=== PATIENT | male | born 1985 | race Caucasian/White ===

== ENCOUNTER 2019-03-23 09:15 | Emergency (ER) | payer SELFPAY ==
[2019-03-23] MEDS ORDERED: Sodium Chloride 0.9% 1000 ML 1,000 ML IV STA ×2 (09:23→10:49)
[2019-03-23] MEDS ORDERED: MORPHINE SULFATE 4 MG INJ IV ONE (09:23)
[2019-03-23] MEDS ORDERED: Zofran 4 MG/2 ML VIAL IV ONE (09:23)
[2019-03-23] MEDS ORDERED: MORPHINE SULFATE 4 MG INJ ONE (09:36)
[2019-03-23 09:44] LABS: BASOPHIL % 0.1 % (0.0-0.4); Basophil (Absolute #) 0.01 (0-0.4); Eosinophil % 1.6 % (0.00-5.0); Eosinophil (Absolute #) 0.12 (0-0.5); Granulocyte Absolute (ANC) 4.73 (1.4-6.9); Granulocytes % 61.9 % (36.0-66.0); Hematocrit 46.7 % (42-50); Hemoglobin 15.8 gm/dl (12.5-18.0); Lymphocyte (Absolute #) 2.03 (1.0-4.6); Lymphocytes % 26.6 % (24.0-44.0); Mean Cell Volume 92.5 fl (78-100); Mean Corpuscular Hemoglobin 31.3 pg (26-32); Mean Corpuscular Hgb Concent. 33.8 g/dl (32-36); Mean Platelet Volume 11.2 fl (6-9.5); Monocyte (Absolute #) 0.75 (0.0-1.3); Monocytes % 9.8 % (0.0-12.0); Platelet Count 134 K/mm3 (150-450); Red Blood Count 5.05 M/mm3 (4.1-5.6); Red Cell Distribution Width 13.8 % (11.5-14.0); White Blood Count 7.6 K/mm3 (4.0-10.5)
[2019-03-23] MEDS ORDERED: Zofran 4 MG/2 ML VIAL ONE (09:47)
[2019-03-23] MEDS ORDERED: Sodium Chloride 0.9% 1000 ML 1,000 ML ONE ×2 (09:47→10:50)
--- NOTE | 2019-03-23 09:47 | ERPHSYRPT ---
- History of Present Illness Time Seen by Provider: 03/23/19 09:45 Historian: patient, family Exam Limitations: no limitations Patient Subjective Stated Complaint: Right flank pain that radiates to the front , doubled over in pain Triage Nursing Assessment: Pt woke in the middle of the night with right sided flank pain that radiates to the front, vitals wnl, afebrile, rates pain 7/10 Physician History: 33-year-old male patient without any significant past medical history came to the emergency room with sudden onset of right costovertebral angle area pain radiating to the front into the groin and into the testicle on the right side. Patient's elevated cup with this type of pain at 6:00 in the morning and came to the emergency room around 9:30 AM. Patient never had this type of problem before and otherwise patient is healthy except for history of smoking about one pack per day for 15 years. Patient denies any history of high blood pressure, heart disease, alcohol use. Timing/Duration: today Activities at Onset: rest Quality: aching, fullness Abdominal Pain Onset Location: flank, other (right CVA ) Allergies/Adverse Reactions: No Known Drug Allergies Allergy (Verified 03/23/19 09:41) - Review of Systems Constitutional: No Fever, No Chills Eyes: No Symptoms Ears, Nose, & Throat: No Symptoms Respiratory: No Cough, No Dyspnea Cardiac: No Chest Pain, No Edema, No Syncope Abdominal/Gastrointestinal: Abdominal Pain, No Nausea, No Vomiting, No Diarrhea Genitourinary Symptoms: Dysuria, Frequency, Hesitancy, Urgency, Urinary Retention, Flank Pain, Testicle Pain, No Incontinence, No Penile Discharge Musculoskeletal: No Back Pain, No Neck Pain Skin: No Rash Neurological: No Dizziness, No Focal Weakness, No Sensory Changes Psychological: No Symptoms Endocrine: No Symptoms All Other Systems: Reviewed and Negative - Past Medical History Pertinent Past Medical History: No - Past Surgical History Past Surgical History: Yes Musculoskeletal: Other - Social History Smoking Status: Current every day smoker How long have you smoked: 17 Exposure to second hand smoke: Yes Drug Use: none Patient Lives Alone: No - Nursing Vital Signs Nursing Vital Signs: Initial Vital Signs Temperature 97.8 F 03/23/19 09:20 Pulse Rate 68 03/23/19 09:20 Blood Pressure 109/73 03/23/19 09:20 O2 Sat by Pulse Oximetry 100 03/23/19 09:20 Pain Scale Pain Intensity 3 - Physical Exam General Appearance: no apparent distress, alert Eye Exam: PERRL/EOMI, eyes nml inspection Ears, Nose, Throat Exam: normal ENT inspection, pharynx normal, moist mucous membranes Neck Exam: normal inspection, non-tender, supple, full range of motion Respiratory Exam: normal breath sounds, lungs clear, No respiratory distress Cardiovascular Exam: regular rate/rhythm, normal heart sounds Gastrointestinal/Abdomen Exam: soft, No tenderness, No mass Back Exam: normal inspection, normal range of motion, No CVA tenderness, No vertebral tenderness Extremity Exam: normal inspection, normal range of motion, pelvis stable Neurologic Exam: alert, oriented x 3, cooperative, normal mood/affect, nml cerebellar function, sensation nml, No motor deficits Skin Exam: normal color, warm, dry SpO2: 100 - Course Nursing assessment & vital signs reviewed: Yes - CT Exams Abdomen/Pelvis CT Interpretation: Tele-radiologist Report (right 3 mm stone at distal end of ureter) Ordered Tests: Active Orders 24 hr Category Date Time Status ABDOMEN AND PELVIS W/0 CONTRAS [CT] Stat Exams 03/23/19 09:24 Taken AMYLASE Stat Lab 03/23/19 09:30 Completed CBC W DIFF Stat Lab 03/23/19 09:30 Completed CMP Stat Lab 03/23/19 09:30 Completed LIPASE Stat Lab 03/23/19 09:30 Completed Lactic Acid Stat Lab 03/23/19 09:23 Completed UA W/RFX UR CULTURE Stat Lab 03/23/19 09:41 Completed Urine Triage Profile Stat Lab 03/23/19 09:41 Completed Medication Summary Discontinued Medications Generic Name Dose Route Start Last Admin Trade Name Daq PRN Reason Stop Dose Admin Diphenhydramine HCl 25 mg 03/23/19 10:19 03/23/19 10:37 Benadryl 50 Mg/Ml IV 03/23/19 10:20 25 mg STAT ONE Administration Diphenhydramine HCl Confirm 03/23/19 10:34 Benadryl 50 Mg/Ml Administered 03/23/19 10:35 Dose 50 mg .ROUTE .STK-MED ONE Sodium Chloride 1,000 mls @ 999 mls/hr 03/23/19 09:23 03/23/19 10:55 Sodium Chloride 0.9% 1000 Ml IV 03/23/19 10:23 Infused .Q1H1M STA Infusion Sodium Chloride Confirm 03/23/19 09:47 Sodium Chloride 0.9% 1000 Ml Administered 03/23/19 09:48 Dose 1,000 mls @ ud .ROUTE .STK-MED ONE Sodium Chloride 1,000 mls @ 999 mls/hr 03/23/19 10:49 03/23/19 10:54 Sodium Chloride 0.9% 1000 Ml IV 03/23/19 11:49 999 mls/hr .Q1H1M STA Administration Sodium Chloride Confirm 03/23/19 10:50 Sodium Chloride 0.9% 1000 Ml Administered 03/23/19 10:51 Dose 1,000 mls @ ud .ROUTE .STK-MED ONE Ketorolac Tromethamine 30 mg 03/23/19 10:19 03/23/19 10:37 Toradol 30 Mg Injection IV 03/23/19 10:20 30 mg STAT ONE Administration Ketorolac Tromethamine Confirm 03/23/19 10:34 Toradol 30 Mg Injection Administered 03/23/19 10:35 Dose 30 mg .ROUTE .STK-MED ONE Morphine Sulfate 4 mg 03/23/19 09:23 03/23/19 09:50 Morphine Sulfate 4 Mg Inj IV 03/23/19 09:24 4 mg STAT ONE Administration Morphine Sulfate Confirm 03/23/19 09:36 Morphine Sulfate 4 Mg Inj Administered 03/23/19 09:37 Dose 4 mg .ROUTE .STK-MED ONE Ondansetron HCl 4 mg 03/23/19 09:23 03/23/19 09:50 Zofran 4 Mg/2 Ml Vial IV 03/23/19 09:24 4 mg STAT ONE Administration Ondansetron HCl Confirm 03/23/19 09:47 Zofran 4 Mg/2 Ml Vial Administered 03/23/19 09:48 Dose 4 mg .ROUTE .STK-MED ONE Orphenadrine Citrate 60 mg 03/23/19 10:47 03/23/19 10:54 Norflex 60 Mg/2 Ml IV 03/23/19 10:48 60 mg STAT ONE Administration Orphenadrine Citrate Confirm 03/23/19 10:48 Norflex 60 Mg/2 Ml Administered 03/23/19 10:49 Dose 60 mg .ROUTE .STK-MED ONE Lab/Rad Data: Laboratory Result Diagrams 03/23/19 09:30 03/23/19 09:30 Laboratory Results 03/23/19 03/23/19 03/23/19 Range/Units 09:41 09:41 09:30 WBC (4.0-10.5) K/mm3 RBC (4.1-5.6) M/mm3 Hgb (12.5-18.0) gm/dl Hct (42-50) % MCV (78-100) fl MCH (26-32) pg MCHC (32-36) g/dl RDW (11.5-14.0) % Plt Count (150-450) K/mm3 MPV (6-9.5) fl Gran % (36.0-66.0) % Eos # (Auto) (0-0.5) Absolute Lymphs (auto) (1.0-4.6) Absolute Monos (auto) (0.0-1.3) Lymphocytes % (24.0-44.0) % Monocytes % (0.0-12.0) % Eosinophils % (0.00-5.0) % Basophils % (0.0-0.4) % Absolute Granulocytes (1.4-6.9) Basophils # (0-0.4) Sodium 142 (137-145) mmol/L Potassium 4.6 (3.5-5.1) mmol/L Chloride 105 (98-107) mmol/L Carbon Dioxide 28 (22-30) mmol/L Anion Gap 12.6 (5-15) MEQ/L BUN 24 H (9-20) mg/dL Creatinine 1.13 (0.66-1.25) mg/dL Estimated GFR > 60.0 ML/MIN Glucose 92 (74-106) mg/dL Lactic Acid (0.4-2.0) Calcium 9.6 (8.4-10.2) mg/dL Total Bilirubin 0.40 (0.2-1.3) mg/dL AST 24 (17-59) U/L ALT 18 (0-50) U/L Alkaline Phosphatase 75 (38-126) U/L Serum Total Protein 7.3 (6.3-8.2) g/dL Albumin 4.3 (3.5-5.0) g/dL Amylase 71 (30-110) U/L Lipase 73 (23-300) U/L Urine Color DAMIAN (YELLOW) Urine Appearance CLEAR (CLEAR) Urine pH 5.0 (5-6) Ur Specific [place] 1.038 (1.005-1.025) Urine Protein 30 (Negative) Urine Ketones NEGATIVE (NEGATIVE) Urine Blood NEGATIVE (0-5) Mason/ul Urine Nitrite NEGATIVE (NEGATIVE) Urine Bilirubin SMALL (NEGATIVE) Urine Urobilinogen 2 (0-1) mg/dL Ur Leukocyte Esterase NEGATIVE (NEGATIVE) Urine WBC (Auto) NONE (0-5) /HPF Urine RBC (Auto) 0-2 (0-2) /HPF U Epithel Cells (Auto) NONE (FEW) /HPF Urine Bacteria (Auto) RARE (NEGATIVE) /HPF Urine Mucus (Auto) MANY (NEGATIVE) /HPF Urine Culture Reflexed NO (NO) Urine Glucose NEGATIVE (NEGATIVE) mg/dL Urine Opiates Level NEGATIVE (NEGATIVE) Ur Methadone NEGATIVE (NEGATIVE) Urine Barbiturates NEGATIVE (NEGATIVE) Ur Phencyclidine (PCP) NEGATIVE (NEGATIVE) Urine Amphetamine NEGATIVE (NEGATIVE) U Benzodiazepine Level NEGATIVE (NEGATIVE) Urine Cocaine NEGATIVE (NEGATIVE) Urine Marijuana (THC) POSITIVE (NEGATIVE) 03/23/19 03/23/19 Range/Units 09:30 09:23 WBC 7.6 (4.0-10.5) K/mm3 RBC 5.05 (4.1-5.6) M/mm3 Hgb 15.8 (12.5-18.0) gm/dl Hct 46.7 (42-50) % MCV 92.5 (78-100) fl MCH 31.3 (26-32) pg MCHC 33.8 (32-36) g/dl RDW 13.8 (11.5-14.0) % Plt Count 134 L (150-450) K/mm3 MPV 11.2 H (6-9.5) fl Gran % 61.9 (36.0-66.0) % Eos # (Auto) 0.12 (0-0.5) Absolute Lymphs (auto) 2.03 (1.0-4.6) Absolute Monos (auto) 0.75 (0.0-1.3) Lymphocytes % 26.6 (24.0-44.0) % Monocytes % 9.8 (0.0-12.0) % Eosinophils % 1.6 (0.00-5.0) % Basophils % 0.1 (0.0-0.4) % Absolute Granulocytes 4.73 (1.4-6.9) Basophils # 0.01 (0-0.4) Sodium (137-145) mmol/L Potassium (3.5-5.1) mmol/L Chloride (98-107) mmol/L Carbon Dioxide (22-30) mmol/L Anion Gap (5-15) MEQ/L BUN (9-20) mg/dL Creatinine (0.66-1.25) mg/dL Estimated GFR ML/MIN Glucose (74-106) mg/dL Lactic Acid 1.1 (0.4-2.0) Calcium (8.4-10.2) mg/dL Total Bilirubin (0.2-1.3) mg/dL AST (17-59) U/L ALT (0-50) U/L Alkaline Phosphatase (38-126) U/L Serum Total Protein (6.3-8.2) g/dL Albumin (3.5-5.0) g/dL Amylase (30-110) U/L Lipase (23-300) U/L Urine Color (YELLOW) Urine Appearance (CLEAR) Urine pH (5-6) Ur Specific [place] (1.005-1.025) Urine Protein (Negative) Urine Ketones (NEGATIVE) Urine Blood (0-5) Mason/ul Urine Nitrite (NEGATIVE) Urine Bilirubin (NEGATIVE) Urine Urobilinogen (0-1) mg/dL Ur Leukocyte Esterase (NEGATIVE) Urine WBC (Auto) (0-5) /HPF Urine RBC (Auto) (0-2) /HPF U Epithel Cells (Auto) (FEW) /HPF Urine Bacteria (Auto) (NEGATIVE) /HPF Urine Mucus (Auto) (NEGATIVE) /HPF Urine Culture Reflexed (NO) Urine Glucose (NEGATIVE) mg/dL Urine Opiates Level (NEGATIVE) Ur Methadone (NEGATIVE) Urine Barbiturates (NEGATIVE) Ur Phencyclidine (PCP) (NEGATIVE) Urine Amphetamine (NEGATIVE) U Benzodiazepine Level (NEGATIVE) Urine Cocaine (NEGATIVE) Urine Marijuana (THC) (NEGATIVE) - Progress Progress: improved, pain not gone completely Counseled pt/family regarding: lab results, diagnosis, need for follow-up, rad results - Departure Departure Disposition: Home Clinical Impression: Right ureteral calculus Condition: Stable Critical Care Time: No Referrals: GALILEO BROWNING [Primary Care Provider] - Instructions: Renal Colic (DC) Additional Instructions: JANESSA MAHER RONALD was seen on 03/23/19 n the Emergency Room. At that time you were treated for an emergent condition, during your visit Laboratory, Radiology and/or other procedures may have been ordered. It is very important that you follow-up with your Primary Care Physician GALILEO BROWNING within the next 24-48 hours to review your Emergency Room visit and the final results of testing that was ordered. Some test results such as Urine Cultures, Blood Cultures, and other cultures if ordered will not be finalized for 24-48 hours. If you do not have a Primary Care Provider please call the medical records department at [phone] ext [phone] to obtain a copy of your results or you may sign into our patient portal to obtain these results by visiting us @ [email or web address] and completing the following steps: 1. Click on the Patient Portal link 2. Click the Patient Self Enrollment Link to complete the enrollment form and entering your 3. Once the enrollment form is completed you will receive an email with a temporary ID and password at the email address you provided. 4. Next choose a user name and password. Your user name must be at least 4 characters long and your password must be at least 4 characters long. 5. Choose a security question from the list and provide your answer to the question. If you already have signed into the Health Portal you may access your Health Care Information 30/01 by the following steps: 1. Login to our website @ [email or web address] 2. Enter your original user name and password. FAQS The [facility] Portal is an online tool that contains your Lab Results, Radiology Reports, Visit History, Discharge Instructions and Health Summary Lab and Radiology Results will not be available for 72 hours on the portal. The Portal is a secure site, passwords are encryted and URLs are re-written so they cannot be copied and pasted. You and authorized family members are the only ones who can access your Portal. Also there is a timeout feature that protects your information if you leave the Portal page open. If you have technical difficulty please use the Contact Us link on the page this will allow you to submit any questions you have regarding the Portal or you may contact the Medical Record Department at [phone] ext [phone]. Discharge/Care Plan JANESSA MAHER was seen on 03/23/19 in the Emergency Room. The patient was counseled regarding Diagnosis,Lab results, Imaging studies, need for follow up and when to return to the Emergency Room. Prescriptions given: Discharge Note I have spoken with the patient and/or caregivers. I have explained the patient' s condition, diagnosis and treatment plan based on the information available to me at this time. I have answered the patient's and/or caregiver's questions and addressed any concerns. The patient and/or caregivers have as good understanding of the patient's diagnosis, condition and treatment plan as can be expected at this point. The vital signs have been stable. The patient's condition is stable and appropriate for discharge from the emergency department. The patient will pursue further outpatient evaluation with the primary care physician or other designated or consulting physician as outlined in the discharge instructions. The patient and/or caregivers are agreeable to this plan of care and follow-up instructions have been explained in detail. The patient and/or caregivers have received these instruction. The patient/and or caregivers are aware that any significant change in condition or worsening of symptoms should prompt an immediate return to this or the closest emergency department or call 911. Prescriptions: Ciprofloxacin [Cipro 500 MG] 500 mg PO BIDAC #20 tablet Cyclobenzaprine HCl 10 mg [Flexeril 10 MG] 10 mg PO TID #30 tablet Naproxen 375 mg [Naprosyn 375 mg] 375 mg PO Q8H #30 tablet
[2019-03-23 09:49] LABS: ALBUMIN 4.3 g/dL (3.5-5.0); ALKALINE PHOSPHATASE 75 U/L (38-126); AMYLASE 71 U/L (30-110); ANION GAP 12.6 MEQ/L (5-15); BLOOD UREA NITROGEN 24 mg/dL (9-20); CHLORIDE 105 mmol/L (98-107); Calcium 9.6 mg/dL (8.4-10.2); Carbon Dioxide 28 mmol/L (22-30); Creatinine 1 1.13 mg/dL (0.66-1.25); Glucose 92 mg/dL (74-106); LIPASE 73 U/L (23-300); Potassium 4.6 mmol/L (3.5-5.1); SGOT/AST 24 U/L (17-59); SGPT/ALT 18 U/L (0-50); SODIUM 142 mmol/L (137-145); Total Protein 7.3 g/dL (6.3-8.2)
[2019-03-23 09:49] LABS: Appearance CLEAR (CLEAR); Bacteria RARE /HPF (NEGATIVE); Bilirubin SMALL (NEGATIVE); Blood NEGATIVE Ery/ul (0-5); Glucose NEGATIVE (NEGATIVE); Ketones NEGATIVE (NEGATIVE); Leukocyte Esterase NEGATIVE (NEGATIVE); Mucus MANY /HPF (NEGATIVE); Nitrite NEGATIVE (NEGATIVE); Protein,Urine Dip 30 (Negative); RBC 0-2 /HPF (0-2); Specific Gravity 1.038 (1.005-1.025); Urobilinogen 2 mg/dL (0-1)
[2019-03-23 10:01] LABS: Amphetamine,Urine NEGATIVE (NEGATIVE); Barbiturate,Urine NEGATIVE (NEGATIVE); Benzodiazepine,Urine NEGATIVE (NEGATIVE); Cocaine,Urine NEGATIVE (NEGATIVE); Methadone,Urine NEGATIVE (NEGATIVE); Opiate,Urine NEGATIVE (NEGATIVE); PCP,Urine NEGATIVE (NEGATIVE); THC,Urine POSITIVE (NEGATIVE)
[2019-03-23] MEDS ORDERED: BENADRYL 50 MG/ML IV ONE (10:19)
[2019-03-23] MEDS ORDERED: TORAdol 30 mg Injection IV ONE (10:19)
[2019-03-23] MEDS ORDERED: TORAdol 30 mg Injection ONE (10:34)
[2019-03-23] MEDS ORDERED: BENADRYL 50 MG/ML ONE (10:34)
[2019-03-23] MEDS ORDERED: Norflex 60 MG/2 ML IV ONE (10:47)
[2019-03-23] MEDS ORDERED: Norflex 60 MG/2 ML ONE (10:48)
[2019-03-23 11:34] VITALS: BP 142/99; PULSE 70
[2019-03-23 15:49] VITALS: O2SAT 100
--- NOTE | 2019-03-23 20:13 | XRAY ---
Indication: Right flank pain. Nausea. Multiple contiguous axial images obtained through the abdomen and pelvis without contrast as ordered. Comparison: None Lung bases are clear. Heart is not enlarged. A few right infrahilar calcified nodes. Noncontrasted stomach and bowel loops appear nonobstructed. Appendix not seen. Mild scattered fecal debris greatest in the ascending colon. No free fluid/air. There is a 3 mm distal right ureteral calculus approximately 2 cm proximal to the UVJ. Proximal right ureter is slightly prominent with mild hydronephrosis and minimal perinephric stranding consisting with partial obstructive uropathy. Remaining liver, gallbladder, pancreas, spleen, adrenal glands, left kidney, left ureter, and bladder appear unremarkable for noncontrast exam. Minimal aortoiliac calcifications without AAA. Osseous structures intact. Impression: 3 mm distal right ureteral calculus producing partial obstruction as detailed. Comment: Preliminary interpretation was made by [facility]. No critical discrepancy. CTDI 13.35
== END 2019-03-23 11:35 | disposition home or self-care (01) ==
LOC: ED 09:15
DX: N20.1 Calculus of ureter (principal)
CPT/HCPCS: 36000; 36415; 74176; 80053; 80307; 81001; 82150; 83605; 83690; 85025; 96360; 96361; 96374; 96375; 99285; J1200; J1885; J2270; J2360; J2405

== ENCOUNTER 2019-03-26 18:56 | Emergency (ER) | payer SELFPAY ==
[2019-03-26] MEDS ORDERED: Sodium Chloride 0.9% 1000 ML 1,000 ML IV STA ×2 (19:09→19:42)
[2019-03-26] MEDS ORDERED: Hydromorphone 1 mg/ml Ampule IV ONE (19:09)
[2019-03-26] MEDS ORDERED: BENADRYL 50 MG/ML IV ONE (19:10)
[2019-03-26] MEDS ORDERED: BENADRYL 50 MG/ML ONE (19:16)
--- NOTE | 2019-03-26 19:16 | ERPHSYRPT ---
- History of Present Illness Time Seen by Provider: 03/26/19 19:05 Historian: patient Exam Limitations: no limitations Physician History: Patient has had RLQ abdominal pain for the past 3 days. Evaluated 3 days ago and diagnosed with a kidney stone. Pain worsened again 4 hours prior to coming into the emergency department, with pain in the RLQ radiating to the right groin. Timing/Duration: day(s) (3), worse (4 hours prior to coming into the emergency department) Quality: cramping, stabbing, throbbing Abdominal Pain Onset Location: RLQ Pain Radiation: groin Severity of Pain-Max: severe Severity of Pain-Current: severe Modifying Factors: Improves With: analgesics (medications he received from the ED on 03/23/2017 have helped his pain) Associated Symptoms: nausea, No back, No chest pain, No diaphoresis, No diarrhea , No fever/chills, No fatigue, No headache, No heartburn, No loss of appetite, No neck pain, No rash, No shortness of breath, No syncope, No testicular pain, No vomiting, No weakness Previous symptoms: same symptoms as today, recently seen (03/23/2019), recently treated (03/23/2019), other (referred to the emergency department by his primary care provider) Allergies/Adverse Reactions: No Known Drug Allergies Allergy (Verified 03/23/19 09:41) Home Medications: Naproxen 375 mg [Naprosyn 375 mg] 220 mg PO Q8H 03/26/19 [History] - Review of Systems Constitutional: No Fever, No Chills Eyes: No Eye Pain, No Vision Changes Ears, Nose, & Throat: No Throat Pain, No Hoarse Respiratory: No Cough, No Dyspnea Cardiac: No Chest Pain, No Edema, No Syncope Abdominal/Gastrointestinal: Abdominal Pain, Nausea, Constipation, No Vomiting, No Diarrhea Genitourinary Symptoms: No Dysuria, No Frequency, No Hematuria, No Urgency, No Flank Pain Musculoskeletal: No Back Pain, No Neck Pain Skin: No Rash Neurological: No Dizziness, No Focal Weakness, No Sensory Changes Psychological: No Symptoms Endocrine: No Symptoms Hematologic/Lymphatic: No Easy Bleeding, No Easy Bruising All Other Systems: Reviewed and Negative - Past Medical History Pertinent Past Medical History: No - Past Surgical History Past Surgical History: Yes Musculoskeletal: Other - Social History Smoking Status: Current every day smoker How long have you smoked: 17 Exposure to second hand smoke: Yes Drug Use: none Patient Lives Alone: No - Nursing Vital Signs Nursing Vital Signs: Initial Vital Signs Temperature 98.1 F 03/26/19 19:01 Pulse Rate 80 03/26/19 19:01 Respiratory Rate 17 03/26/19 19:01 Blood Pressure 169/101 03/26/19 19:01 O2 Sat by Pulse Oximetry 99 03/26/19 19:01 Pain Scale Pain Intensity 0 - Physical Exam General Appearance: no apparent distress, alert Eye Exam: PERRL/EOMI, eyes nml inspection Ears, Nose, Throat Exam: normal ENT inspection, pharynx normal, moist mucous membranes Neck Exam: normal inspection, non-tender, supple, full range of motion Respiratory Exam: normal breath sounds, lungs clear, airway intact, No respiratory distress, No diminished breath sounds, No crackles/rales, No rhonchi , No wheezing, No stridor Cardiovascular Exam: regular rate/rhythm, normal heart sounds, normal peripheral pulses, capillary refill <2 sec Gastrointestinal/Abdomen Exam: soft, normal bowel sounds, No tenderness, No distention, No mass, No guarding, No pulsatile mass, No rebound, No hernia Back Exam: normal inspection, normal range of motion, No CVA tenderness, No vertebral tenderness Extremity Exam: normal inspection, normal range of motion, pelvis stable Neurologic Exam: alert, oriented x 3, cooperative, relations manager II-XII nml as tested, normal mood/affect, nml cerebellar function, sensation nml, No motor deficits Skin Exam: normal color, warm, dry, No jaundice, No cyanosis SpO2 Interpretation: normal SpO2: 99 O2 Delivery: Room Air - Course Nursing assessment & vital signs reviewed: Yes - CT Exams Abdomen/Pelvis CT Interpretation: Tele-radiologist Report, Other (report of CT of the abdomen and pelvis from 03/23/2019:3 mm distal right ureteral stone 2 cm above the right UPJ; scattered fecal debris on the right side of the colon, most noted on the ascending colon) Ordered Tests: Active Orders 24 hr Category Date Time Status IV Insertion STAT Care 03/26/19 19:09 Active NPO (ED) STAT Care 03/26/19 19:09 Active AMYLASE Stat Lab 03/26/19 19:17 Completed CBC W DIFF Stat Lab 03/26/19 19:17 Completed CMP Stat Lab 03/26/19 19:17 Completed LIPASE Stat Lab 03/26/19 19:17 Completed Lactic Acid Stat Lab 03/26/19 20:00 Completed UA W/RFX UR CULTURE Stat Lab 03/26/19 19:17 Completed Medication Summary Generic Name Dose Route Start Last Admin Trade Name Daq PRN Reason Stop Dose Admin Tamsulosin HCl 0.4 mg 03/26/19 22:00 03/26/19 20:21 Flomax 0.4 Mg PO 04/25/19 21:59 0.4 mg HS KARIN Administration Discontinued Medications Generic Name Dose Route Start Last Admin Trade Name Freq PRN Reason Stop Dose Admin Diphenhydramine HCl 50 mg 03/26/19 19:10 03/26/19 19:23 Benadryl 50 Mg/Ml IV 03/26/19 19:11 50 mg STAT ONE Administration Diphenhydramine HCl Confirm 03/26/19 19:16 Benadryl 50 Mg/Ml Administered 03/26/19 19:17 Dose 50 mg .ROUTE .STK-MED ONE Hydromorphone HCl 1 mg 03/26/19 19:09 03/26/19 19:21 Hydromorphone 1 Mg/Ml Ampule IV 03/26/19 19:10 1 mg STAT ONE Administration Hydromorphone HCl Confirm 03/26/19 19:17 Hydromorphone 1 Mg/Ml Ampule Administered 03/26/19 19:18 Dose 1 mg .ROUTE .STK-MED ONE Sodium Chloride 1,000 mls @ 999 mls/hr 03/26/19 19:09 03/26/19 20:26 Sodium Chloride 0.9% 1000 Ml IV 03/26/19 20:09 Infused .Q1H1M STA Infusion Sodium Chloride Confirm 03/26/19 19:17 Sodium Chloride 0.9% 1000 Ml Administered 03/26/19 19:18 Dose 1,000 mls @ ud .ROUTE .STK-MED ONE Sodium Chloride 1,000 mls @ 999 mls/hr 03/26/19 19:42 03/26/19 20:33 Sodium Chloride 0.9% 1000 Ml IV 03/26/19 20:42 999 mls/hr .Q1H1M STA Administration Sodium Chloride Confirm 03/26/19 20:11 Sodium Chloride 0.9% 1000 Ml Administered 03/26/19 20:12 Dose 1,000 mls @ ud .ROUTE .[facility]-MED ONE Lab/Rad Data: Laboratory Result Diagrams 03/26/19 19:17 03/26/19 19:17 Laboratory Results 03/26/19 03/26/19 03/26/19 Range/Units 20:00 19:17 19:17 WBC (4.0-10.5) K/mm3 RBC (4.1-5.6) M/mm3 Hgb (12.5-18.0) gm/dl Hct (42-50) % MCV (78-100) fl MCH (26-32) pg MCHC (32-36) g/dl RDW (11.5-14.0) % Plt Count (150-450) K/mm3 MPV (6-9.5) fl Gran % (36.0-66.0) % Eos # (Auto) (0-0.5) Absolute Lymphs (auto) (1.0-4.6) Absolute Monos (auto) (0.0-1.3) Lymphocytes % (24.0-44.0) % Monocytes % (0.0-12.0) % Eosinophils % (0.00-5.0) % Basophils % (0.0-0.4) % Absolute Granulocytes (1.4-6.9) Basophils # (0-0.4) Sodium 141 (137-145) mmol/L Potassium 4.3 (3.5-5.1) mmol/L Chloride 105 (98-107) mmol/L Carbon Dioxide 26 (22-30) mmol/L Anion Gap 14.0 (5-15) MEQ/L BUN 24 H (9-20) mg/dL Creatinine 1.43 H (0.66-1.25) mg/dL Estimated GFR 59.8 ML/MIN Glucose 83 (74-106) mg/dL Lactic Acid 0.8 (0.4-2.0) Calcium 9.6 (8.4-10.2) mg/dL Total Bilirubin 0.70 (0.2-1.3) mg/dL AST 40 (17-59) U/L ALT 53 H (0-50) U/L Alkaline Phosphatase 65 (38-126) U/L Serum Total Protein 7.0 (6.3-8.2) g/dL Albumin 3.9 (3.5-5.0) g/dL Amylase 52 (30-110) U/L Lipase 27 (23-300) U/L Urine Color YELLOW (YELLOW) Urine Appearance CLEAR (CLEAR) Urine pH 6.0 (5-6) Ur Specific Delton 1.023 (1.005-1.025) Urine Protein NEGATIVE (Negative) Urine Ketones NEGATIVE (NEGATIVE) Urine Blood MODERATE (0-5) Mason/ul Urine Nitrite NEGATIVE (NEGATIVE) Urine Bilirubin NEGATIVE (NEGATIVE) Urine Urobilinogen 2 (0-1) mg/dL Ur Leukocyte Esterase NEGATIVE (NEGATIVE) Urine WBC (Auto) 6-10 (0-5) /HPF Urine RBC (Auto) 51-100 (0-2) /HPF U Epithel Cells (Auto) NONE (FEW) /HPF Urine Bacteria (Auto) NONE (NEGATIVE) /HPF Urine Mucus (Auto) SLIGHT (NEGATIVE) /HPF Urine Culture Reflexed NO (NO) Urine Glucose NEGATIVE (NEGATIVE) mg/dL 03/26/19 Range/Units 19:17 WBC 10.9 H (4.0-10.5) K/mm3 RBC 4.63 (4.1-5.6) M/mm3 Hgb 14.4 (12.5-18.0) gm/dl Hct 42.3 (42-50) % MCV 91.4 (78-100) fl MCH 31.1 (26-32) pg MCHC 34.0 (32-36) g/dl RDW 13.5 (11.5-14.0) % Plt Count 134 L (150-450) K/mm3 MPV 11.2 H (6-9.5) fl Gran % 68.7 H (36.0-66.0) % Eos # (Auto) 0.10 (0-0.5) Absolute Lymphs (auto) 2.00 (1.0-4.6) Absolute Monos (auto) 1.30 (0.0-1.3) Lymphocytes % 18.4 L (24.0-44.0) % Monocytes % 11.9 (0.0-12.0) % Eosinophils % 0.9 (0.00-5.0) % Basophils % 0.1 (0.0-0.4) % Absolute Granulocytes 7.47 H (1.4-6.9) Basophils # 0.01 (0-0.4) Sodium (137-145) mmol/L Potassium (3.5-5.1) mmol/L Chloride (98-107) mmol/L Carbon Dioxide (22-30) mmol/L Anion Gap (5-15) MEQ/L BUN (9-20) mg/dL Creatinine (0.66-1.25) mg/dL Estimated GFR ML/MIN Glucose (74-106) mg/dL Lactic Acid (0.4-2.0) Calcium (8.4-10.2) mg/dL Total Bilirubin (0.2-1.3) mg/dL AST (17-59) U/L ALT (0-50) U/L Alkaline Phosphatase (38-126) U/L Serum Total Protein (6.3-8.2) g/dL Albumin (3.5-5.0) g/dL Amylase (30-110) U/L Lipase (23-300) U/L Urine Color (YELLOW) Urine Appearance (CLEAR) Urine pH (5-6) Ur Specific Delton (1.005-1.025) Urine Protein (Negative) Urine Ketones (NEGATIVE) Urine Blood (0-5) Mason/ul Urine Nitrite (NEGATIVE) Urine Bilirubin (NEGATIVE) Urine Urobilinogen (0-1) mg/dL Ur Leukocyte Esterase (NEGATIVE) Urine WBC (Auto) (0-5) /HPF Urine RBC (Auto) (0-2) /HPF U Epithel Cells (Auto) (FEW) /HPF Urine Bacteria (Auto) (NEGATIVE) /HPF Urine Mucus (Auto) (NEGATIVE) /HPF Urine Culture Reflexed (NO) Urine Glucose (NEGATIVE) mg/dL - Progress Progress: improved Progress Note: 03/26/19 20:19 Pain has significantly improved down to a 1/10. No further nausea sensation. Patient will be given one Flomax 0.4mg here in the emergency department. 03/26/19 21:20 Patient's pain has resolved. Patient has some lower obstructive uropathy from the kidney stone most likely at the UPJ now, causing his symptoms that made him return to the emergency department this evening with an increase in his creatinine, which should improve with today's hydration and passage of the stone. Patient has no indication for repeat CT scan imaging as he is afebrile, no CVA tenderness bilaterally with no significant elevation in his WBC. Patient does not need inpatient admission as his pain is adequately controlled. Patient does not need any immediate surgical or Urological evaluation at this time. Patient will be discharged home in good condition with continued follow- up as an outpatient. Counseled pt/family regarding: lab results, diagnosis, need for follow-up, rad results (from 03/23/2019) - Departure Departure Disposition: Home, Extended Care Facility Clinical Impression: Ureteral colic, Lower obstructive uropathy, Acute renal insufficiency, Elevated blood pressure reading without diagnosis of hypertension Constipation Qualifiers: Constipation type: unspecified constipation type Qualified Code(s): K59.00 - Constipation, unspecified Condition: Good Critical Care Time: No Referrals: GALILEO BROWNING [Primary Care Provider] - Follow Up with PCP/3 days Instructions: Kidney Stones (DC), Acute Kidney Failure (DC), Constipation, Adult (DC) Forms: Work/School Release Form Prescriptions: Oxycodone HCl/Acetaminophen [Percocet 5-325 mg Tablet] 1 each PO Q6H PRN PRN # 12 tablet MDD 4 PRN Reason: Pain Polyethylene Glycol 3350 17 gm [Miralax Powder 17GM PACKET] 17 gm PO DAILY PRN #7 packet PRN Reason: Constipation Tamsulosin HCl 0.4 mg [Flomax 0.4 MG] 0.4 mg PO DAILY #7 cap
[2019-03-26 19:17] LABS: BASOPHIL % 0.1 % (0.0-0.4); Basophil (Absolute #) 0.01 (0-0.4); Eosinophil % 0.9 % (0.00-5.0); Granulocyte Absolute (ANC) 7.47 (1.4-6.9); Granulocytes % 68.7 % (36.0-66.0); Hematocrit 42.3 % (42-50); Hemoglobin 14.4 gm/dl (12.5-18.0); Lymphocytes % 18.4 % (24.0-44.0); Mean Cell Volume 91.4 fl (78-100); Mean Corpuscular Hemoglobin 31.1 pg (26-32); Mean Platelet Volume 11.2 fl (6-9.5); Monocytes % 11.9 % (0.0-12.0); Platelet Count 134 K/mm3 (150-450); Red Blood Count 4.63 M/mm3 (4.1-5.6); Red Cell Distribution Width 13.5 % (11.5-14.0); White Blood Count 10.9 K/mm3 (4.0-10.5)
[2019-03-26] MEDS ORDERED: Hydromorphone 1 mg/ml Ampule ONE (19:17)
[2019-03-26] MEDS ORDERED: Sodium Chloride 0.9% 1000 ML 1,000 ML ONE ×2 (19:17→20:11)
[2019-03-26 19:35] LABS: Appearance CLEAR (CLEAR); Bilirubin NEGATIVE (NEGATIVE); Blood MODERATE Ery/ul (0-5); Glucose NEGATIVE (NEGATIVE); Ketones NEGATIVE (NEGATIVE); Leukocyte Esterase NEGATIVE (NEGATIVE); Mucus SLIGHT /HPF (NEGATIVE); Nitrite NEGATIVE (NEGATIVE); Protein,Urine Dip NEGATIVE (Negative); RBC 51-100 /HPF (0-2); Specific Gravity 1.023 (1.005-1.025); Urobilinogen 2 mg/dL (0-1)
[2019-03-26 19:39] LABS: ALBUMIN 3.9 g/dL (3.5-5.0); BILIRUBIN,TOTAL 0.7 mg/dL (0.2-1.3); Calcium 9.6 mg/dL (8.4-10.2); Creatinine 1 1.43 mg/dL (0.66-1.25); Potassium 4.3 mmol/L (3.5-5.1)
[2019-03-26] MEDS ORDERED: Flomax 0.4 MG ONE (20:20)
[2019-03-26 20:54] VITALS: PULSE 70
[2019-03-26 21:25] VITALS: O2SAT 99
[2019-03-26 21:45] VITALS: BP 141/84
[2019-03-26] MEDS ORDERED: Flomax 0.4 MG PO SCH (22:00)
== END 2019-03-26 21:47 | disposition home or self-care (01) ==
LOC: ED 18:56
DX: N23 Unspecified renal colic (principal); N13.9 Obstructive and reflux uropathy, unspecified; N28.9 Disorder of kidney and ureter, unspecified; R03.0 Elevated blood-pressure reading, without diagnosis of hypertension; K59.00 Constipation, unspecified
CPT/HCPCS: 36000; 36415; 80053; 81001; 82150; 83605; 83690; 85025; 96360; 96361; 96374; 96375; 99284; J1170; J1200; A9270-GY

== ENCOUNTER 2020-07-20 14:27 | Emergency (ER) | payer OTHER ==
[2020-07-20] MEDS ORDERED: TORAdol 30 mg Injection IM ONE (14:50)
--- NOTE | 2020-07-20 15:22 | XRAY ---
Indication: Low back pain. Comparison: None 3 view lumbar spine demonstrates 5 lumbar segments in normal alignment with minimal L5-S1 disc space narrowing. No other bony, articular, or soft tissue abnormalities.
[2020-07-20] MEDS ORDERED: TORAdol 30 mg Injection ONE ×2 (15:28→15:29)
[2020-07-20] MEDS: Decadron 4 MG PO STA ×2 (15:38→15:49)
[2020-07-20] MEDS ORDERED: MOTRIN 400 MG PO ONE (15:50)
[2020-07-20] MEDS ORDERED: MOTRIN 400 MG ONE (16:20)
--- NOTE | 2020-07-20 16:32 | ERPHSYRPT ---
- History of Present Illness Time Seen by Provider: 07/20/20 15:00 Source: patient Exam Limitations: no limitations Patient Subjective Stated Complaint: pt states "I have been helping my mother and I think I pulled my lower back. It is spasming like crazy." Triage Nursing Assessment: Pt presented alert and oriented X 3, skin pwd PT ambulates with a slow hunched over gait, able to speak in clear full sentenecs pt in no apparent respiratory distress. Physician History: Patient is a 34-year-old male presents to our ED with complaints of low back spasms. Patient states he has been assisting his mother move. Patient's mother is a heavier woman per patient. He later went to work which requires significant bending and lifting. Later on during the day patient started to experience tightness and pain in his low back particularly at the left paraspinal musculature. Pain described as an ache that is well localized. No radiation. No trauma. No fever. No nausea or vomiting. No chest pain or shortness of breath. No change in bowel bladder function. No saddle anesthesia. Patient voices no other complaints or concerns at this time. Timing/Duration: yesterday Method of Injury: bending Quality: dull Back Pain Location: lumbar spine Severity of Pain-Max: moderate Severity of Pain-Current: mild Modifying Factors: Improves With: movement Associated Symptoms: muscle spasms, No fever, No chills, No sweating, No urinary incontinence, No loss of bowel control, No constipation, No nausea, No vomiting, No problems urinating, No light-headedness, No dizziness, No numbness in legs/feet, No weakness, No sensory/motor loss, No tingling in legs/feet, No lower back pain Previous symptoms: no prior history Allergies/Adverse Reactions: No Known Drug Allergies Allergy (Verified 03/23/19 09:41) Hx Tetanus, Diphtheria Vaccination/Date Given: No Hx Influenza Vaccination/Date Given: No Hx Pneumococcal Vaccination/Date Given: No Immunizations Up to Date: Yes Travel Risk - International Travel Have you traveled outside of the country in past 3 weeks: No - Coronavirus Screening Are you exhibiting any of the following symptoms?: No Close contact with a COVID-19 positive Pt in past 14-21 Days: No - Review of Systems Constitutional: No Symptoms, No Fever, No Chills Eyes: No Symptoms Ears, Nose, & Throat: No Symptoms Respiratory: No Symptoms, No Cough, No Dyspnea Cardiac: No Symptoms, No Chest Pain, No Edema, No Syncope Abdominal/Gastrointestinal: No Symptoms, No Abdominal Pain, No Nausea, No Vomiting, No Diarrhea Genitourinary Symptoms: No Symptoms, No Dysuria Musculoskeletal: No Symptoms, No Back Pain, No Neck Pain Skin: No Symptoms, No Rash Neurological: No Symptoms, No Dizziness, No Focal Weakness, No Sensory Changes Psychological: No Symptoms Endocrine: No Symptoms Hematologic/Lymphatic: No Symptoms Immunological/Allergic: No Symptoms All Other Systems: Reviewed and Negative - Past Medical History Pertinent Past Medical History: No Neurological History: No Pertinent History ENT History: No Pertinent History Cardiac History: No Pertinent History Respiratory History: No Pertinent History Endocrine Medical History: No Pertinent History Musculoskeletal History: Fractures GI Medical History: No Pertinent History History: Other Psycho-Social History: Depression Male Reproductive Disorders: No Pertinent History Other Medical History: fx lt elbow and lt leg. kidney stones - Past Surgical History Past Surgical History: Yes Neuro Surgical History: No Pertinent History Cardiac: No Pertinent History Respiratory: No Pertinent History Gastrointestinal: No Pertinent History Genitourinary: No Pertinent History Musculoskeletal: Other Male Surgical History: No Pertinent History Other Surgical History: repair to fx of lt elbow and lt leg - Social History Smoking Status: Current every day smoker How long have you smoked: years Exposure to second hand smoke: Yes Drug Use: none Patient Lives Alone: No - Nursing Vital Signs Nursing Vital Signs: Initial Vital Signs Temperature 98.2 F 07/20/20 14:39 Pulse Rate 76 07/20/20 14:39 Respiratory Rate 20 07/20/20 14:39 Blood Pressure 142/96 07/20/20 14:39 O2 Sat by Pulse Oximetry 99 07/20/20 14:39 Pain Scale Pain Intensity [] 7 Pain Intensity 7 - Physical Exam General Appearance: no apparent distress, alert Eye Exam: PERRL/EOMI, eyes nml inspection Ears, Nose, Throat Exam: normal ENT inspection Neck Exam: normal inspection, non-tender, supple, full range of motion, No meningismus, No midline tenderness Respiratory Exam: normal breath sounds, lungs clear, No respiratory distress Cardiovascular Exam: regular rate/rhythm, normal heart sounds Gastrointestinal Exam: soft, No tenderness, No mass Extremity Exam: normal inspection, normal range of motion, No calf tenderness, No pedal edema Neurologic Exam: alert, oriented x 3, cooperative, side laster staple II-XII nml as tested, normal mood/affect, nml station & gait, sensation nml, No motor deficits Skin Exam: normal color, warm, dry, No rash Lymphatic Exam: adenopathy SpO2 Interpretation: normal SpO2: 99 O2 Delivery: Room Air - Course Nursing assessment & vital signs reviewed: Yes - Radiology Exams L-Spine X-ray Interpretation: Interpreted by me (No fracture or dislocations observed. Decreased lordotic curve. Possible muscle spasm. Remainder of x-ray per spine negative.) Ordered Tests: Active Orders 24 hr Category Date Time Status LUMBAR LIMITED (2 OR 3 VIEWS) Stat Exams 07/20/20 14:49 Completed UA W/RFX UR CULTURE Stat Lab 07/20/20 14:50 Ordered Medication Summary Discontinued Medications Generic Name Dose Route Start Last Admin Trade Name Daq PRN Reason Stop Dose Admin Dexamethasone 8 mg 07/20/20 14:51 07/20/20 15:49 Decadron 4 Mg PO 07/20/20 14:52 Not Given ONCE STA Ibuprofen 800 mg 07/20/20 15:50 07/20/20 16:22 Motrin 400 Mg PO 07/20/20 15:51 800 mg STAT ONE Administration Ibuprofen Confirm 07/20/20 16:20 Motrin 400 Mg Administered 07/20/20 16:21 Dose 800 mg .ROUTE .STK-MED ONE Ketorolac Tromethamine 60 mg 07/20/20 14:50 07/20/20 15:37 Toradol 30 Mg Injection IM 07/20/20 14:51 60 mg STAT ONE Administration Ketorolac Tromethamine Confirm 07/20/20 15:28 Toradol 30 Mg Injection Administered 07/20/20 15:29 Dose 30 mg .ROUTE .STK-MED ONE Ketorolac Tromethamine Confirm 07/20/20 15:29 Toradol 30 Mg Injection Administered 07/20/20 15:30 Dose 30 mg .ROUTE .STK-MED ONE - Progress Progress: improved Progress Note: 07/20/20 16:46 Patient reassessed. Pain improved. X-ray negative for acute pathology. Diagnosis is lumbosacral strain/muscle spasm. A prescription for muscle relaxer sent to patient's pharmacy. [id number] ibuprofen as needed. Work note provided. Patient agrees to follow-up with his primary care doctor within 48 hours for reevaluation. Counseled pt/family regarding: diagnosis, need for follow-up, rad results - Departure Departure Disposition: Home Clinical Impression: Lumbosacral strain, Muscle spasm Condition: Stable Critical Care Time: No Referrals: GALILEO BROWNING [Primary Care Provider] - Additional Instructions: Discharge/Care Plan NIKAJANESSAJAHAIRA CARDENAS was seen on 07/20/20 in the Emergency Room. The patient was counseled regarding Diagnosis,Lab results, Imaging studies, need for follow up and when to return to the Emergency Room. Prescriptions given: Discharge Note I have spoken with the patient and/or caregivers. I have explained the patient's condition, diagnosis and treatment plan based on the information available to me at this time. I have answered the patient's and/or caregiver's questions and addressed any concerns. The patient and/or caregivers have as good understanding of the patient's diagnosis, condition and treatment plan as can be expected at this point. The vital signs have been stable. The patient's condition is stable and appropriate for discharge from the emergency department. The patient will pursue further outpatient evaluation with the primary care physician or other designated or consulting physician as outlined in the discharge instructions. The patient and/or caregivers are agreeable to this plan of care and follow-up instructions have been explained in detail. The patient and/or caregivers have received these instruction. The patient/and or caregivers are aware that any significant change in condition or worsening of symptoms should prompt an immediate return to this or the closest emergency department or call 911. Prescriptions: Methocarbamol 500 mg [Robaxin 500 MG] 500 mg PO TID 5 Days #15 tablet
[2020-07-20 16:41] VITALS: BP 147/98; PULSE 64
[2020-07-20 16:45] VITALS: O2SAT 99
[2020-07-20 18:46] LABS: Appearance CLEAR (CLEAR); Bilirubin NEGATIVE (NEGATIVE); Blood NEGATIVE Ery/ul (0-5); Glucose NEGATIVE (NEGATIVE); Ketones NEGATIVE (NEGATIVE); Leukocyte Esterase NEGATIVE (NEGATIVE); Mucus MANY /HPF (NEGATIVE); Nitrite NEGATIVE (NEGATIVE); Protein,Urine Dip NEGATIVE (Negative); Specific Gravity 1.028 (1.005-1.025); Urobilinogen NEGATIVE mg/dL (0-1)
== END 2020-07-20 16:52 | disposition home or self-care (01) ==
LOC: ED 14:27
DX: S39.012A Strain of muscle, fascia and tendon of lower back, initial encounter (principal); X50.0XXA Overexertion from strenuous movement or load, initial encounter; M62.830 Muscle spasm of back
CPT/HCPCS: 72100; 81001; 96372; 99284; J1885; A9270-GY

== ENCOUNTER 2021-08-09 10:37 | Emergency (ER) | payer OTHER ==
[2021-08-09 10:51] VITALS: BP 122/82; PULSE 71; O2SAT 99
[2021-08-09] MEDS ORDERED: TORAdol 30 mg Injection IM ONE (11:02)
[2021-08-09] MEDS ORDERED: TORAdol 30 mg Injection ONE ×2 (11:05→11:06)
--- NOTE | 2021-08-09 11:08 | ERPHSYRPT ---
- History of Present Illness Source: patient Exam Limitations: no limitations Patient Subjective Stated Complaint: " I have a toothache and my dentist is closed. I have bad dental genetics. " Triage Nursing Assessment: Pt presents to ER with complaints of toothache. Pt has obvious tooth decay throughout mouth. Pt states pain is in left lower tooth, pt is missing several teeth. Pt took tylenol at 0800 this morning and states has relief when drinking ice water. Pt is alert and oriented x3. Pt skin is pink, warm, and dry. Tenderness noted to left side face, no obvious redness or swelling noted to face. Pt states attempted to go to dentist today but dentist was closed. Physician History: 36 yo wm w dental pain x 1-2 days. Pt rates his pain as severe and denies injury. Dentition is very poor, and he states that he needs them all pulled. Timing/Duration: gradual onset Severity: severe ENT Location: mouth Prearrival Treatment: over the counter meds Modifying Factors: Improves With: other (Worse w chewing) Associated Symptoms: jaw pain, tooth pain, No ear pain (R), No ear pain (L), No cough, No fever, No chills, No change in hearing, No dizziness, No drooling, No ear drainage, No facial pain/swelling, No headache, No hearing loss, No malaise, No motion sickness, No nasal congestion/drainage, No epistaxis, No nasal foreign body, No neck pain, No poor fluid intake, No poor solids intake, No ringing of ears, No swollen glands, No sinus infection, No sore throat, No difficulty swallowing, No voice change Allergies/Adverse Reactions: No Known Drug Allergies Allergy (Verified 08/09/21 10:51) Hx Tetanus, Diphtheria Vaccination/Date Given: Yes Hx Influenza Vaccination/Date Given: No Hx Pneumococcal Vaccination/Date Given: No Immunizations Up to Date: Yes Travel Risk - International Travel Have you traveled outside of the country in past 3 weeks: No - Coronavirus Screening Are you exhibiting any of the following symptoms?: No Close contact with a COVID-19 positive Pt in past 14-21 Days: No - Vaccine Status Have you recieved a Covid-19 vaccination: No - Review of Systems Constitutional: No Symptoms Eyes: No Symptoms Ears, Nose, & Throat: No Symptoms, Mouth Pain, Loose Teeth Respiratory: No Symptoms Cardiac: No Symptoms Abdominal/Gastrointestinal: No Symptoms Genitourinary Symptoms: No Symptoms Musculoskeletal: No Symptoms Skin: No Symptoms Neurological: No Symptoms Psychological: No Symptoms Endocrine: No Symptoms Hematologic/Lymphatic: No Symptoms Immunological/Allergic: No Symptoms - Past Medical History Pertinent Past Medical History: No Neurological History: No Pertinent History ENT History: No Pertinent History Cardiac History: No Pertinent History Respiratory History: No Pertinent History Endocrine Medical History: No Pertinent History Musculoskeletal History: Fractures GI Medical History: No Pertinent History History: Other Psycho-Social History: Depression Male Reproductive Disorders: No Pertinent History Other Medical History: fx lt elbow and lt leg. kidney stones - Past Surgical History Past Surgical History: Yes Neuro Surgical History: No Pertinent History Cardiac: No Pertinent History Respiratory: No Pertinent History Gastrointestinal: No Pertinent History Genitourinary: No Pertinent History Musculoskeletal: Other Male Surgical History: No Pertinent History Other Surgical History: repair to fx of lt elbow and lt leg - Social History Smoking Status: Current every day smoker How long have you smoked: years Exposure to second hand smoke: No Drug Use: none Patient Lives Alone: No Significant Family History: no pertinent family hx - Nursing Vital Signs Nursing Vital Signs: Initial Vital Signs Temperature 97 F 08/09/21 10:44 Pulse Rate 71 08/09/21 10:44 Respiratory Rate 18 08/09/21 10:44 Blood Pressure 122/82 08/09/21 10:44 O2 Sat by Pulse Oximetry 99 08/09/21 10:44 Pain Scale Pain Intensity 10 WNL - Physical Exam General Appearance: no apparent distress Eye Exam: bilateral eye: normal inspection, PERRL, EOMI Ear Exam: bilateral ear: auricle normal, canal normal, TM normal Nasal Exam: normal inspection Throat Exam: dental tenderness (Widespread dental decay w multiple missing teeth and erosions to base) Neck Exam: normal inspection, non-tender, supple, full range of motion, trachea midline Cardiovascular/Respiratory Exam: normal breath sounds, regular rate/rhythm, heart sounds normal Abdominal Exam: non-tender, soft Neurologic Exam: alert, oriented x 3, cooperative, second hand II-XII nml as tested, normal mood/affect, nml cerebellar function, nml station & gait, sensation nml Skin Exam: normal color, warm, dry SpO2 Interpretation: normal SpO2: 99 O2 Delivery: Room Air - Course Nursing assessment & vital signs reviewed: Yes Ordered Tests: Medication Summary Discontinued Medications Generic Name Dose Route Start Last Admin Trade Name Brandi PRN Reason Stop Dose Admin Ketorolac Tromethamine 60 mg 08/09/21 11:02 08/09/21 11:08 Ketorolac Tromethamine 30 Mg/Ml Inj IM 08/09/21 11:03 60 mg STAT ONE Administration Ketorolac Tromethamine Confirm 08/09/21 11:05 Ketorolac Tromethamine 30 Mg/Ml Inj Administered 08/09/21 11:06 Dose 60 mg .ROUTE .STK-MED ONE Ketorolac Tromethamine Confirm 08/09/21 11:06 Ketorolac Tromethamine 30 Mg/Ml Inj Administered 08/09/21 11:07 Dose 60 mg .ROUTE .STK-MED ONE - Progress Progress: improved Progress Note: 08/09/21 11:09 60mg IM Toradol Counseled pt/family regarding: diagnosis, need for follow-up - Departure Departure Disposition: Home Clinical Impression: Dental caries Condition: Stable Critical Care Time: No Referrals: GALILEO BROWNING NP [Primary Care Provider] - Follow up/PCP as directed Instructions: Tooth Decay, Adult (DC) Additional Instructions: Dentist VERENICE Prescriptions: Etodolac 400 mg PO BID PRN #14 tablet PRN Reason: Pain Penicillin V Potassium 500 mg PO TID #30 tablet
== END 2021-08-09 11:20 | disposition home or self-care (01) ==
LOC: ED 10:37
DX: K02.9 Dental caries, unspecified (principal); Z72.0 Tobacco use
CPT/HCPCS: 96372; 99283; J1885

== ENCOUNTER 2022-11-11 16:19 | Emergency (ER) | payer OTHER ==
[2022-11-11 17:12] VITALS: BP 153/102; O2SAT 98
--- NOTE | 2022-11-11 17:18 | ERPHSYRPT ---
- History of Present Illness Time Seen by Provider: 11/11/22 16:23 Source: patient Exam Limitations: no limitations Patient Subjective Stated Complaint: pt here for left arm pain that radiatesto left side of chest, pt has an abscess to left elbow . is worried about hes heart Triage Nursing Assessment: pt alert, resp easy, skin w/d/p. has abscess to left elbow,has swelling, warmth, no drainage Physician History: Patient is here with a left elbow bursitis. Patient states it started several days ago. Initially started as a pimple. States that he squeezed it. States that he became red, inflamed. Patient has no actual elbow joint pain. No elbow effusion. States it is only a bursitis. Patient states that he is having some mild chest pain and nausea associated with the pain from the bursitis. He has no falls or other trauma. He has not been taking any antibiotics. Patient states he has been picking at the scab of the pimple. Allergies/Adverse Reactions: No Known Drug Allergies Allergy (Verified 11/11/22 17:06) Hx Tetanus, Diphtheria Vaccination/Date Given: Yes Hx Influenza Vaccination/Date Given: No Hx Pneumococcal Vaccination/Date Given: No Immunizations Up to Date: Yes Travel Risk - International Travel Have you traveled outside of the country in past 3 weeks: No - Coronavirus Screening Are you exhibiting any of the following symptoms?: No Close contact with a COVID-19 positive Pt in past 14-21 Days: No - Vaccine Status Have you recieved a Covid-19 vaccination: No - Review of Systems Constitutional: No Fever, No Chills Eyes: No Symptoms Ears, Nose, & Throat: No Symptoms Respiratory: No Cough, No Dyspnea Cardiac: No Chest Pain, No Edema, No Syncope Abdominal/Gastrointestinal: No Abdominal Pain, No Nausea, No Vomiting, No Diarrhea Genitourinary Symptoms: No Dysuria Musculoskeletal: Other (Elbow bursitis), No Back Pain, No Neck Pain Skin: No Rash Neurological: No Dizziness, No Focal Weakness, No Sensory Changes Psychological: No Symptoms Endocrine: No Symptoms All Other Systems: Reviewed and Negative - Past Medical History Pertinent Past Medical History: No Neurological History: No Pertinent History ENT History: No Pertinent History Cardiac History: No Pertinent History Respiratory History: No Pertinent History Endocrine Medical History: No Pertinent History Musculoskeletal History: Fractures GI Medical History: No Pertinent History History: Other Psycho-Social History: Depression Male Reproductive Disorders: No Pertinent History Other Medical History: fx lt elbow and lt leg. kidney stones - Past Surgical History Past Surgical History: Yes Neuro Surgical History: No Pertinent History Cardiac: No Pertinent History Respiratory: No Pertinent History Gastrointestinal: No Pertinent History Genitourinary: No Pertinent History Musculoskeletal: Other Male Surgical History: No Pertinent History Other Surgical History: repair to fx of lt elbow and lt leg - Social History Smoking Status: Current every day smoker How long have you smoked: years Exposure to second hand smoke: No Drug Use: none Patient Lives Alone: No Significant Family History: no pertinent family hx - Nursing Vital Signs Nursing Vital Signs: Initial Vital Signs Temperature 98.4 F 11/11/22 17:11 Pulse Rate 71 11/11/22 17:11 Respiratory Rate 18 11/11/22 17:11 Blood Pressure 153/102 11/11/22 17:11 O2 Sat by Pulse Oximetry 98 11/11/22 17:11 Pain Scale Pain Intensity 4 - Physical Exam General Appearance: no apparent distress, alert Eye Exam: PERRL/EOMI, eyes nml inspection Ears, Nose, Throat Exam: normal ENT inspection, TMs normal, pharynx normal, moist mucous membranes Neck Exam: normal inspection, non-tender, supple, full range of motion Respiratory Exam: normal breath sounds, lungs clear, No respiratory distress Cardiovascular Exam: regular rate/rhythm, normal heart sounds, normal peripheral pulses Gastrointestinal/Abdomen Exam: soft, normal bowel sounds, No tenderness, No mass Back Exam: normal inspection, normal range of motion, No CVA tenderness, No vertebral tenderness Extremity Exam: normal inspection, normal range of motion, pelvis stable, other Neurologic Exam: alert, oriented x 3, cooperative, normal mood/affect, nml cerebellar function, nml station & gait, sensation nml, No motor deficits Skin Exam: normal color, warm, dry, No rash Lymphatic Exam: No adenopathy SpO2: 98 Comments: 11/11/22 17:29 Left elbow bursitis. Some surrounding redness. No elbow effusion. No signs of a septic joint. No obvious deformity, sensation intact, 2+ capillary refill, 2 point tactile discrimination intact. 5 out of 5 strength. Full range of motion without pain. Compartments are soft, nontender. Overlying skin shows no tenting, bruising, ecchymosis. - Course Nursing assessment & vital signs reviewed: Yes - Progress Progress: improved Progress Note: 11/11/22 17:30 Left elbow bursitis. Plan for antibiotics going home given it started as a pimple. EKG obtained given his chest pain. Very low suspicion for cardiac issue. EKG is normal. Most likely just associated with bursitis pain. Will discharge patient home with Zofran, clindamycin. Patient will follow-up with orthopedic surgery and 2 to 3 days for reexam. He may return here sooner for new or changing symptoms sooner. Medical Desision Making - Independent Historian Additional History obtained from: Relative/friend - Risk of complications Minimal Risk: Minimal risk of morbidity - Departure Departure Disposition: Home Clinical Impression: Olecranon bursitis, left elbow Condition: Stable Critical Care Time: No Referrals: GALILEO BROWNING NP [Primary Care Provider] - Follow up/PCP as directed Instructions: Olecranon Bursitis Additional Instructions: Follow up with orthopedic [employer] on Monday for reexam. You may return here sooner for new or changing symptoms. Prescriptions: Ondansetron ODT 4 MG [Zofran Odt 4 mg] 4 mg PO Q6H PRN PRN #10 tablet PRN Reason: Vomiting Clindamycin HCl 150 mg [Cleocin 150 mg Capsule] 2 cap PO QID #56 cap
[2022-11-11 17:26] VITALS: PULSE 68
== END 2022-11-11 17:31 | disposition home or self-care (01) ==
LOC: ED 16:19
DX: M70.22 Olecranon bursitis, left elbow (principal); R07.9 Chest pain, unspecified; R11.0 Nausea; Z28.310 Unvaccinated for COVID-19; Z72.0 Tobacco use
CPT/HCPCS: 99281

== ENCOUNTER 2023-04-30 02:05 | Emergency (ER) | payer MEDICAID, OTHER ==
[2023-04-30 02:24] VITALS: RESP 18; TEMP 97.3
[2023-04-30] MEDS ORDERED: TORAdol 30 mg Injection IM ONE (02:50)
[2023-04-30] MEDS ORDERED: TORAdol 30 mg Injection ONE (02:55)
--- NOTE | 2023-04-30 03:18 | ERPHSYRPT ---
- History of Present Illness Time Seen by Provider: 04/30/23 02:30 Source: patient Exam Limitations: no limitations Patient Subjective Stated Complaint: pt states that he fell over the curb. pt states that he has back pain Triage Nursing Assessment: pt ambulated into the er; pt is axo x4; c/o back pain; pt states pain to lower left side of back; tenderness present to left lower back; good ROM to back; skin PDW; no respiratory distress present; vitals wnl Physician History: 37yo m presents to ED w/ cc of low back pain. Pt states he fell around 20:30 on 04/29 when he was headed to work. Pt was stepping down off of a sidewalk when his foot caught and he fell forward into the street, hitting his hands first and rolling and bumping his head. Pt denies LOC, remembers the entire event, denies any LINO or blurry vision. Pt complains of right sided low back pain that is primarily in the paraspinal musculature of the lumbar spine and raps around in the hip and thigh. Pt also admits to some tingling of the right LE that he associates w/ prolonged sitting. Pt denies any loss of bowel/bladder continence, denies saddle parasthesias, denies LE weakness. Pt denies cp, soa, n/v/abdominal pain. Pt denies any previous back injuries. Timing/Duration: hour(s) (8h) Method of Injury: fall, tripped Quality: dull, aching Back Pain Location: paraspinous muscles Back Pain Radiation: buttocks, upper legs Severity of Pain-Max: moderate Severity of Pain-Current: moderate Modifying Factors: Improves With: immobilization (prolonged sitting worsens sx) Associated Symptoms: denies symptoms Previous symptoms: no prior history Body Map: 1 - pain in paraspinal musculature radiating through right buttocks and into anterior thigh Allergies/Adverse Reactions: nickel Allergy (Verified 04/30/23 02:20) Swelling Home Medications: No Reportable Medications [No Reported Medications] 04/30/23 [History] Hx Tetanus, Diphtheria Vaccination/Date Given: Yes Hx Influenza Vaccination/Date Given: No Hx Pneumococcal Vaccination/Date Given: No Travel Risk - International Travel Have you traveled outside of the country in past 3 weeks: No - Coronavirus Screening Are you exhibiting any of the following symptoms?: No Close contact with a COVID-19 positive Pt in past 14-21 Days: No - Vaccine Status Have you recieved a Covid-19 vaccination: No - Review of Systems Constitutional: No Fever, No Chills Eyes: No Symptoms Ears, Nose, & Throat: No Symptoms Respiratory: No Cough, No Dyspnea Cardiac: No Chest Pain, No Edema, No Syncope Abdominal/Gastrointestinal: No Abdominal Pain, No Nausea, No Vomiting, No Lisa rrhea Musculoskeletal: Back Pain, Myalgias Neurological: No Dizziness, No Focal Weakness, No Sensory Changes Psychological: No Symptoms - Past Medical History Pertinent Past Medical History: Yes Neurological History: No Pertinent History ENT History: No Pertinent History Cardiac History: No Pertinent History Respiratory History: No Pertinent History Endocrine Medical History: No Pertinent History Musculoskeletal History: Fractures GI Medical History: No Pertinent History History: Other Psycho-Social History: Anxiety, Depression Male Reproductive Disorders: No Pertinent History Other Medical History: fx lt elbow and lt leg. kidney stones - Past Surgical History Past Surgical History: Yes Neuro Surgical History: No Pertinent History Cardiac: No Pertinent History Respiratory: No Pertinent History Gastrointestinal: No Pertinent History Genitourinary: Other Musculoskeletal: Other Male Surgical History: No Pertinent History Other Surgical History: kidney stone removal - Social History Smoking Status: Current every day smoker How long have you smoked: 20 Exposure to second hand smoke: Yes Drug Use: none Patient Lives Alone: No Significant Family History: no pertinent family hx - Nursing Vital Signs Nursing Vital Signs: Initial Vital Signs Temperature 97.3 F 04/30/23 02:14 Pulse Rate 98 H 04/30/23 02:14 Respiratory Rate 18 04/30/23 02:14 Blood Pressure 129/88 04/30/23 02:14 O2 Sat by Pulse Oximetry 98 04/30/23 02:14 Pain Scale Pain Intensity [Lower Back] 6 Pain Intensity 0 - Physical Exam General Appearance: no apparent distress, alert Neck Exam: normal inspection, non-tender, supple, full range of motion, No meningismus, No midline tenderness Respiratory Exam: normal breath sounds, lungs clear, No respiratory distress Cardiovascular Exam: regular rate/rhythm, normal heart sounds Gastrointestinal Exam: soft, No tenderness, No mass Back Exam: normal inspection (TTP over right lateral lumbar paraspinal musculature into right gluteal musculature) Extremity Exam: normal inspection, normal range of motion, No calf tenderness, No pedal edema Neurologic Exam: alert, oriented x 3, cooperative, rug designer II-XII nml as tested (b/l LE strength +5, patellar reflexes +2 b/l, sensation intact diffusely) Skin Exam: normal color, warm, dry, other (small abrasion on forehead <1cm in diameter), No rash SpO2: 98 - Course Nursing assessment & vital signs reviewed: Yes Ordered Tests: Active Orders 24 hr Category Date Time Status HIP UNI (2V) INCL PEL IF DONE Stat Exams 04/30/23 02:52 Taken LUMBAR SPINE W/O [CT] Stat Exams 04/30/23 02:50 Completed Medication Summary Discontinued Medications Generic Name Dose Route Start Last Admin Trade Name Freq PRN Reason Stop Dose Admin Ketorolac Tromethamine 30 mg 04/30/23 02:50 04/30/23 02:55 Ketorolac Tromethamine 30 Mg/Ml Inj IM 04/30/23 02:51 30 mg STAT ONE Administration Ketorolac Tromethamine Confirm 04/30/23 02:55 Ketorolac Tromethamine 30 Mg/Ml Inj Administered 04/30/23 02:56 Dose 30 mg .ROUTE .STK-MED ONE - Progress Progress Note: 04/30/23 03:27 Pt given IM toradol 30mg CT lumbar spine ordered along w/ plain films of right hip and pelvis 04/30/23 04:45 CT lumbar spine showed: 1. Schmorl?s node of L4 upper vertebral endplate shows mild sagging. 2. Mild lumbar spondylosis. 3. L5- S1 mild diffuse disc bulge with bilateral neural foraminal compromise. I discussed results of ct w/ pt, discussed risks of bulging disc plan for dc home w/ neurosurgery f/u - informed pt that his PCP may need to initiate this referral I recommended pt see neurosurgery at [facility] in [place] pt agreed to f/u w/ pcp and neurosurgery outpatient no acute intervention indicated, pt stable and asymptomatic at this time plan to dc pt home w/ strict restrictions - no lifting > 10lbs 04/30/23 05:10 I talked w/ Dr Hopkins - Neurosurgery at [facility] - regarding pt's CT results , he stated that these findings were common in middle aged males, stated that discharging pt to home would be appropriate and that there was no need for pt to be seen by neurosurgeon acutely, pt can f/u outpatient if sx worsen will dc pt home w/ close PCP f/u, lifting restrictions for work Will see patient in: office Counseled pt/family regarding: lab results, diagnosis, need for follow-up, rad results Medical Desision Making - Discussion of managment Care discussed with:: specialist (Neurosurgery Dr Sandeep Ennis [facility]) Reviewed:: Test results Agreed on:: need for follow-up Will see patient: In office (stated pt can f/u outpatient if neurologic sx develop) - Diagnostic Testing Diagnostic test were ordered, analyzed, and reviewed by me: Yes Radiological Interpretation: Reviewed by me, Teleradiologist Report - Risk of complications Minimal Risk: Minimal risk of morbidity - Departure Departure Disposition: Home Clinical Impression: Lumbar nerve root compression Back pain Qualifiers: Back pain location: low back pain Chronicity: acute Back pain laterality: right Sciatica presence: without sciatica Qualified Code(s): M54.50 - Low back pain, unspecified Condition: Stable Critical Care Time: No Referrals: GALILEO BROWNING NP [Primary Care Provider] - Follow up/PCP as directed Additional Instructions: able to return to work w/ Lifting restrictions of < 10lbs; needs to f/u w/ PCP outpatient; OTC ibuprofen for pain management
--- NOTE | 2023-04-30 04:14 | XRAY ---
CLINICAL HISTORY:back pain COMPARISON:CR dated 07/20/2020 was reviewed. TECHNIQUE:Un-enhanced CT scan of lumbar spine done. Axial images were obtained with reformatted coronal and sagittal images and submitted for interpretation. FINDINGS: Preserved physiological lumbar lordosis. Schmorl?s node of L4 upper vertebral endplate shows mild sagging. Small marginal osteophytic lipping of the opposing vertebral endplates. Relative reduced height of L5/S1 disc space. Intact vertebral bodies and neural arches. No definite fractures could be detected. Segmental disc analysis level by level: L1- L2: There is no significant disc herniation or neural foraminal narrowing visualized. Central canal is unremarkable. No sign of lateral recess stenosis. Nerve roots are normal. L2- L3: There is no significant disc herniation or neural foraminal narrowing visualized. Central canal is unremarkable. No sign of lateral recess stenosis. Nerve roots are normal. L3- L4: There is no significant disc herniation or neural foraminal narrowing visualized. Central canal is unremarkable. No sign of lateral recess stenosis. Nerve roots are normal. L4- L5: There is no significant disc herniation or neural foraminal narrowing visualized. Central canal is unremarkable. Nerve roots are normal. L5- S1: There is mild diffuse disc bulge causing bilateral neural foraminal narrowing. Central canal is unremarkable. Small marginal posterior osteophytes is also noted. Unremarkable facet joints. No retro paraspinal soft tissue masses. No developmental canal stenosis. Mild aortoiliac vascular calcifications. IMPRESSION: 1. Schmorl?s node of L4 upper vertebral endplate shows mild sagging. 2. Mild lumbar spondylosis. 3. L5- S1 mild diffuse disc bulge with bilateral neural foraminal compromise. Electronically Signed by: Axel Recio MD. (04/30/2023 03:13:00 [employer]OTECTION ENGINEERING TECHNICIAN)
[2023-04-30 05:15] VITALS: O2SAT 98
[2023-04-30 05:32] VITALS: BP 105/65; PULSE 47
--- NOTE | 2023-04-30 08:47 | XRAY ---
Indication: Pain. Comparison: None AP pelvis and 2 view right hip obtained. No bony, articular, or soft tissue abnormalities.
== END 2023-04-30 05:37 | disposition home or self-care (01) ==
LOC: ED 02:05
DX: S34.21XA Injury of nerve root of lumbar spine, initial encounter (principal); W10.1XXA Fall (on)(from) sidewalk curb, initial encounter; M54.50 Low back pain, unspecified; Z28.310 Unvaccinated for COVID-19; Z72.0 Tobacco use
CPT/HCPCS: 72131; 73502; 96372; 99284; J1885